=== PATIENT | male | born 1955 | race Caucasian/White ===

== ENCOUNTER → 2016-10-09 | Outpatient (REF) | payer OTHER ==
[~2016-10-09] MED LIST: /DULO30CA OR; ATEN100T OR; NAPR500T OR; TIZA2TAB OR; VICO5TAB PO; antara PO
== END ==
LOC: M SFHCCLAY 08:26
PROVIDERS: ATTEND Family Medicine
DX: I10 Essential (primary) hypertension (principal); E11.9 Type 2 diabetes mellitus without complications; E78.2 Mixed hyperlipidemia; Z12.5 Encounter for screening for malignant neoplasm of prostate; Z53.9 Procedure and treatment not carried out, unspecified reason

== ENCOUNTER → 2017-07-31 | Outpatient (REF) | payer OTHER | LOC: M SFHCCLAY 08:44 | DX: E78.2 Mixed hyperlipidemia (principal); I10 Essential (primary) hypertension; E11.9 Type 2 diabetes mellitus without complications; R97.20 Elevated prostate specific antigen [PSA] ==

== ENCOUNTER → 2019-09-01 | Outpatient (REF) | payer OTHER ==
[~2019-09-01] MED LIST changes: -/DULO30CA OR; +CYMB1CAP5 OR
== END ==
LOC: M SFHCCLAY 09:19
PROVIDERS: ATTEND Family Medicine
DX: I10 Essential (primary) hypertension (principal); E11.9 Type 2 diabetes mellitus without complications; E78.2 Mixed hyperlipidemia; C61 Malignant neoplasm of prostate

== ENCOUNTER → 2020-02-27 | Outpatient (REF) | payer OTHER | LOC: M SFHCCLAY 07:46 | PROVIDERS: ATTEND Family Medicine | DX: Z53.9 Procedure and treatment not carried out, unspecified reason (principal); E78.2 Mixed hyperlipidemia; I10 Essential (primary) hypertension; E11.9 Type 2 diabetes mellitus without complications; C61 Malignant neoplasm of prostate ==

== ENCOUNTER → 2020-09-11 | Outpatient (REF) | payer OTHER | LOC: M SFHCCLAY 07:07 | PROVIDERS: ATTEND Family Medicine | DX: E11.9 Type 2 diabetes mellitus without complications (principal); C61 Malignant neoplasm of prostate ==

== ENCOUNTER → 2021-02-27 | Outpatient (REF) | payer OTHER | LOC: M SFHCCLAY 07:44 | PROVIDERS: ATTEND Family Medicine | DX: Z53.9 Procedure and treatment not carried out, unspecified reason (principal); E78.5 Hyperlipidemia, unspecified; E11.9 Type 2 diabetes mellitus without complications; C61 Malignant neoplasm of prostate ==

== ENCOUNTER → 2021-09-19 | Outpatient (REF) | payer OTHER | LOC: M SFHCCLAY 10:06 | PROVIDERS: ATTEND Family Medicine | DX: Z53.20 Procedure and treatment not carried out because of patient's decision for unspecified reasons (principal) ==

== ENCOUNTER → 2021-12-24 | Outpatient (CLI) | payer OTHER ==
[~2021-12-24] MED LIST changes: +ISOVUE-370 76% 100ML VIAL As Ordered ONE
== END ==
LOC: M RAD 14:56
PROVIDERS: ATTEND Family Medicine
DX: D73.4 Cyst of spleen (principal)
CPT/HCPCS: 74160; Q9967